=== PATIENT | female | born 1995 | race Caucasian/White ===

== ENCOUNTER 2017-02-20 17:31 | Outpatient (CLI) | payer MEDICAID ==
[2017-02-20 18:16] LABS: BILIRUBIN,URINE NEGATIVE (NEGATIVE)
[2017-02-20 18:37] LABS: BASOPHILS % (AUTO) 0.2 %; EOSINOPHILS # (AUTO) 0.1 10^3/uL (0.0-0.7); EOSINOPHILS % (AUTO) 0.9 %; HCT - HEMATOCRIT 36.9 % (37.0-47.0); HGB - HEMOGLOBIN 12.3 g/dL (12.0-16.0); LYMPHOCYTES # (AUTO) 2.9 10^3/uL (1.5-3.5); LYMPHOCYTES % (AUTO) 28.7 %; MEAN CORPUSCULAR HEMOGLOBIN 27.1 pg (27.0-31.0); MEAN CORPUSCULAR HGB CONC 33.4 g/dL (32.0-36.0); MEAN CORPUSCULAR VOLUME 81.1 fL (81.0-99.0); MONOCYTES # (AUTO) 0.8 10^3/uL (0.0-1.0); MONOCYTES % (AUTO) 7.8 %; NEUTROPHILS # (AUTO) 6.2 10^3/uL (1.5-6.6); NEUTROPHILS % (AUTO) 62.4 %; RED BLOOD COUNT 4.55 10^6/uL (4.20-5.40); RED CELL DISTRIBUTION WIDTH 13.7 % (12.0-15.0)
[2017-02-20 18:38] LABS: WBC,URINE 0-3 /HPF (0-5)
== END 2017-02-20 17:32 | disposition home or self-care (01) ==
LOC: LAB 17:31
PROVIDERS: ATTEND Registered Nurse
DX: Z34.81 Encounter for supervision of other normal pregnancy, first trimester (principal)
CPT/HCPCS: 36415; 81001; 81599; 85025; 86762; 86850; 86900; 86901; 87340; 87389

== ENCOUNTER 2017-02-21 08:00 | Outpatient (CLI) | payer MEDICAID | END 2017-02-21 08:01 | disposition home or self-care (01) | LOC: LAB.R 08:00 | PROVIDERS: ATTEND Registered Nurse | DX: Z36 Encounter for antenatal screening of mother (principal) | CPT/HCPCS: 87491; 87591 ==

== ENCOUNTER 2017-06-08 08:20 | Outpatient (CLI) | payer MEDICAID ==
[2017-06-08 09:21] VITALS: BP 112/69
== END 2017-06-08 08:55 | disposition home or self-care (01) ==
LOC: WFO 08:20 → FBP 08:22 → WFO 08:55
PROVIDERS: ATTEND Obstetrics & Gynecology
DX: O36.8120 Decreased fetal movements, second trimester, not applicable or unspecified (principal); Z3A.25 25 weeks gestation of pregnancy; Z34.82 Encounter for supervision of other normal pregnancy, second trimester
CPT/HCPCS: 36415; 82950; 86850; 99212

== ENCOUNTER 2017-07-11 15:01 | Outpatient (CLI) | payer MEDICAID ==
--- NOTE | 2017-07-12 16:04 | Ultrasound Report ---
DATE OF SERVICE: 07/11/2017 LIMITED OB ULTRASOUND: 07/11/2017 CLINICAL INDICATION: Uterine size/date discrepancy. TECHNIQUE: Real-time scanning was performed with service liaison representative static images obtained. LAST MENSTRUAL PERIOD 12/09/2016 Clinical Age 30 weeks 4 days US Age 31 weeks 4 days EFW Hadlock 1629 g EFW% Hadlock 51.8% Heart Rate 131 bpm EDC 09/15/2017 US EDC 09/08/2017 BPD Hadlock 32 weeks 6 days; Mean mm 81.6 HC Hadlock 32 weeks 3 days; Mean mm 294.0 AC Hadlock 30 weeks 2 days; Mean mm 260.7 FL Hadlock 30 weeks 4 days; Mean mm 58.5 Presentation cephalic Placental Location posterior Cervical Length --- Amniotic Fluid 15.8 cm There is a single viable intrauterine gestation, with heart rate of 131 BPM. The fetus is in cephalic presentation. The placenta is posterior, without evidence of previa. By size, the fetus measures 31 weeks 4 days (30 weeks 4 days by physician order). Estimated weight by Hadlock method is 1629 grams. No free fluid or adnexal lesion is seen. IMPRESSION: Single viable intrauterine gestation, with size in keeping with dating from the office. TD: 07/11/2017 22:02 MTDAvis
== END 2017-07-11 15:02 | disposition home or self-care (01) ==
LOC: DI 15:01
PROVIDERS: ATTEND Registered Nurse
DX: O26.843 Uterine size-date discrepancy, third trimester (principal)
CPT/HCPCS: 76815

== ENCOUNTER 2017-07-19 12:00 | Outpatient (CLI) | payer MEDICAID | END 2017-07-19 12:01 | disposition home or self-care (01) | LOC: LAB.R 12:00 | PROVIDERS: ATTEND Nurse Practitioner Obstetrics & Gynecology | DX: R82.90 Unspecified abnormal findings in urine (principal) | CPT/HCPCS: 87086 ==

== ENCOUNTER 2017-07-23 10:46 | Outpatient (CLI) | payer MEDICAID ==
[2017-07-23 11:10] VITALS: BP 105/54
[2017-07-23 11:20] LABS: BILIRUBIN,URINE NEGATIVE (NEGATIVE); CLARITY,URINE CLEAR (CLEAR); GLUCOSE, URINE (UA) NEGATIVE (NEGATIVE); KETONES,URINE (UA) NEGATIVE (NEGATIVE); LEUKOCYTE ESTERASE, URINE NEGATIVE (NEGATIVE); NITRITE,URINE NEGATIVE (NEGATIVE); OCCULT BLOOD,URINE NEGATIVE (NEGATIVE); PH,URINE 6.5 PH (5.0-7.5); PROTEIN,URINE NEGATIVE (NEGATIVE); UROBILINOGEN,URINE 0.2 (NORMAL) E.U./dL (NORMAL)
== END 2017-07-23 12:00 | disposition home or self-care (01) ==
LOC: WFO 10:46 → FBP 10:47 → WFO 12:00
PROVIDERS: ATTEND Nurse Practitioner Obstetrics & Gynecology
DX: O26.893 Other specified pregnancy related conditions, third trimester (principal); R10.2 Pelvic and perineal pain; Z3A.32 32 weeks gestation of pregnancy
CPT/HCPCS: 81001; 81003; 87086; 99214

== ENCOUNTER 2017-08-17 10:08 | Outpatient (CLI) | payer MEDICAID | END 2017-08-17 10:09 | disposition home or self-care (01) | LOC: LAB.R 10:08 | PROVIDERS: ATTEND Registered Nurse | DX: Z36.85 Encounter for antenatal screening for Streptococcus B (principal) | CPT/HCPCS: 87081 ==

== ENCOUNTER 2017-08-25 19:12 | Outpatient (CLI) | payer MEDICAID ==
[2017-08-25] MEDS ORDERED: LACTATED RINGERS 1,000 ML IV SCH (19:44)
[2017-08-25] MEDS ORDERED: LACTATED RINGERS 1,000 ML IV ONE (19:44)
[2017-08-25] MEDS ORDERED: SODIUM CHLORIDE FLUSH 0.9% 10 ML SYRINGE ONE (19:44)
[2017-08-25 20:13] VITALS: BP 112/65
[2017-08-25 21:31] LABS: RUPTURE OF MEMBRANES PLUS NEGATIVE (NEGATIVE)
== END 2017-08-25 22:00 | disposition home or self-care (01) ==
LOC: WFO 19:12 → FBP 19:13 → WFO 22:00
PROVIDERS: ATTEND Registered Nurse
DX: O47.1 False labor at or after 37 completed weeks of gestation (principal); Z3A.37 37 weeks gestation of pregnancy
CPT/HCPCS: 84112; 99213; J7120

== ENCOUNTER 2017-09-14 16:13 | Inpatient (IN) | payer MEDICAID ==
[2017-09-14] MEDS ORDERED: SODIUM CHLORIDE FLUSH 0.9% 10 ML SYRINGE IVP PRN (18:03)
[2017-09-14] MEDS ORDERED: NALBUPHINE 20 MG/ML AMP IVP PRN (18:04)
[2017-09-14] MEDS ORDERED: fentaNYL 100 MCG/2 ML VIAL IVP PRN (18:05)
--- NOTE | 2017-09-14 18:09 | HISTORY & PHYSICAL EXAMINATION ---
Admit History - Instructions Ak Chin/Slash: -Left hand click circles element as positive or present. -Right hand click slashes element as negative or not present. - Visit Reason Visit Reason: Contractions (since 1500) - : 3 Parity: 1 Premature: 0 Ectopic: 0 : 1 Care: positive: [facility] Risk/History: positive: None Complications This : positive: None Smoking Status: Never smoker - Mother's Labs Mother's Blood Type: positive: O Mother's RH: positive: Positive GBS: positive: Group B Step Negative Rubella Status: positive: Immune - Other Maternal History Other Maternal History: Flores Goldman is a 22 y/o @ 39w6d by early 1st trimester US who received care beginning @ 7 weeks for a total of 14 visits. Her care was complicated only by pelvic discomfort, which was intermittently debilitating. She presents this evening w/ 3 hours of consistent uterine contractions w/ progressive discomfort. She denies LOF/VB. +FM. Meds/Allgy - Home Medications Home Medications: Ambulatory Orders Medication Instructions Recorded Confirmed No Known Home Medications [No 01/27/16 01/27/16 Known Home Medications] - Allergies Allergies/Adverse Reactions: Allergies Allergy/AdvReac Type Severity Reaction Status Date / Time amoxicillin Allergy Hives Verified 01/27/16 16:44 buster Allergy Hives Verified 01/27/16 16:44 venom-honey bee Allergy Anaphylaxis Verified 01/27/16 16:44 [bee venom (honey bee)] Physical - Abdominal Exam Vital Signs: Temp Pulse Resp BP Pulse Ox 36.9 C 122 H 18 105/69 99 09/14/17 16:42 09/14/17 16:42 09/14/17 16:42 09/14/17 16:42 09/14/17 16:42 Contraction Frequency (min/apart): 3 Contraction Intensity: positive: Moderate Uterine Resting Tone: positive: Soft - Monitoring Heart Rate Baseline: 130 Strip Review: positive: Category I - Presentation Presentation: positive: Vertex - Vaginal Exam Membranes: positive: Membranes intact Dilation (in cm): 6 Effacement (%): 80 Station: positive: -1 Cervical Position: positive: Anterior - Speculum Exam Speculum Exam Performed: positive: No Findings: negative: Gross leak - Other Notes Labor Progress Note/Additional Text: Flores Goldman is a 22 y/o @ 39w6d by early 1st trimester US who received care beginning @ 7 weeks for a total of 14 visits. Her care was complicated only by pelvic discomfort, which was intermittently debilitating. She presents this evening w/ 3 hours of consistent uterine contractions w/ progressive discomfort. She denies LOF/VB. +FM. Her labs were consistently WNL; she screened negative for GBS @ 36 weeks' gestation PMHx: RECURRENT UTI, ANXIETY/DEPRESSION, HX SUICIDE ATTEMPT Psurghx: TONSILLECTOMY 2017 Gynhx: NO HX STI, HX VVC, NON-RECURRENT OBhx: 2016 @ 41 WEEKS 9#2OZ W/O COMPLICATION; 2013 1ST TRIMESTER TAB Sochx: HOMEMAKER, , DENIES DV, DENIES TOBACCO/ETOH/DRUGS, HX DEPRESSION/ ANXIETY, NOT MEDICATED ROS: HEENT: DENIES BERG/VISION CHANGES CARDIAC: DENIES CP/PALPITATIONS RESP: DENIES SOB/COUGH/WHEEZING/DYSPNEA GI: DENIES N/V/D : NO CHANGES IN VAGINAL D/C, NO LOF, NO VAGINAL BLEEDING, +URINARY FREQUENCY OB: +FM, +UTERINE CONTRACTIONS, NO LOF, NO VB MS: +PUBIC PAIN, + LOW BACK PAIN, FROM SKIN: NO LESION, NO PRURITUS NEURO: NO NUMBNESS/WEAKNESS/TINGLING PSYCH: +ANXIETY, NO DEPRESSION PE: HEENT: GROSSLY NORMOCEPHALIC, ATRAUMATIC CARDIAC: [id number], NO MURMUR RESP: LUNGS B/L CTA T/O GI: ABD GRAVID, NT, +FM PALPABLE, FETUS LONGITUDINAL, CEPHALIC PRESENTATION EFW8 # : NO LESIONS, NO ABNORMAL D/C OB: EFM BL 130BPM, +ACCELS, NO DECELS, MOD HANH; TOCO UCS Q 3 MIN [id number], SVE : 6/80/-1 IBOW PER RN MS: FROM, NO SWELLING/DEFORMITY SKIN: NO LESION, C/D/I, WARM, WELL-PERFUSED NEURO: NO FOCAL DEFICIT PSYCH: ANXIOUS, NO DEPRESSION, NO COGNITIVE DEFICIT Plan for Labor - Plan For Labor Plan for Labor: 1. ADMIT TO FBP 2. ANALGESIA/ANESTHESIA PRN PER PT REQUEST 3. REVIEWED PAIN MANAGEMENT TECHNIQUES, PT WOULD LIKE TO AMBULATE & UTILIZE HYDROTHERAPY 4. PT DECLINES AROM @ THIS TIME 5. INTERMITTENT AUSCULTATION UNLESS CEFM CLINICALLY INDICATED 6. REASSESS CERVICAL STATUS X4 HOURS, EARLIER PRN 7. REVIEWED PLAN OF CARE W/ PT, PARTNER, RN @ BEDSIDE; ALL IN AGREEMENT, WITHOUT CONCERNS
[2017-09-14] MEDS: SODIUM CHLORIDE FLUSH 0.9% 10 ML SYRINGE IVP SCH (18:57)
[2017-09-14] MEDS ORDERED: LACTATED RINGERS 1,000 ML IV SCH (19:00)
[2017-09-14 19:03] LABS: BASOPHILS % (AUTO) 0.8 %; EOSINOPHILS % (AUTO) 0.4 %; HGB - HEMOGLOBIN 11.8 g/dL (12.0-16.0); LYMPHOCYTES % (AUTO) 21.4 %; MEAN CORPUSCULAR HEMOGLOBIN 25.8 pg (27.0-31.0); MEAN CORPUSCULAR HGB CONC 32.3 g/dL (32.0-36.0); MEAN PLATELET VOLUME 8.5 fL (7.9-10.8); MONOCYTES % (AUTO) 9.2 %; NEUTROPHILS % (AUTO) 68.2 %; PLT - PLATELET COUNT 253 10^3/uL (130-450); RED BLOOD COUNT 4.56 10^6/uL (4.20-5.40); RED CELL DISTRIBUTION WIDTH 14.5 % (12.0-15.0); WHITE BLOOD COUNT 12.4 x10^3/uL (4.8-10.8)
[2017-09-14 19:08] LABS: ABNORMAL LYMPHS % (MANUAL) 0 %
[2017-09-14 19:22] LABS: BAND NEUTROPHILS % (MANUAL) 2 %; DIFFERENTIAL COMMENT MANUAL DIFFERENTIAL; LYMPHOCYTES # (MANUAL) 2.2 10^3/uL (1.5-3.5); LYMPHOCYTES % (MANUAL) 18 %; MONOCYTES # (MANUAL) 1.1 10^3/uL (0.0-1.0); NEUTROPHILS # (MANUAL) 9.1 10^3/uL (1.5-6.6); NEUTROPHILS % (MANUAL) 71 %; PLATELET ESTIMATE, MANUAL NORMAL (130-450,000) (NORMAL); PLATELET MORPHOLOGY NORMAL APPEARANCE (NORMAL); RBC MORPHOLOGY (MULTIPLE) 1+ POLYCHROMASIA (NORMAL)
--- NOTE | 2017-09-15 09:26 | PROVIDER PROGRESS NOTE ---
Labor Progress Note - Uterine Monitoring Uterine Monitoring Mode: positive: External toco Contraction Frequency (min/apart): erratic 4-5 Contraction Intensity: positive: Mild to moderate Uterine Resting Tone: positive: Soft - Monitoring Monitor Mode: positive: External ultrasound Heart Rate Baseline: 130 Heart Rate Variability: positive: Absent; amplitude undetectable Accelerations: positive: Present, 15x15 Decelerations: positive: None - Vaginal Exam Dilation (in cm): 7 Effacement (%): 90 Station: -1 Cervical Position: Midposition (AROM for copious CAF) - Labor Progress Note Labor Progress Note/Additional Text: S: Flores was able to sleep intermittently overnight. She is hoping to have an unmedicated delivery. She requests AROM. O: AAOx3, NAD WA EFM: 130bpm, +accels, no decels, mod variability TOCO: UCs erratic, q 3-5 SVE: 7/90/-1 BBOW AROM for copious CAF A: 22 y/o @ 40 weeks' EGA GBS negative, AROM for CAF FHTs cat I prodromal labor w/ advanced cervical dilatation Adequate pain control w/o analgesia/anesthesia P: 1. Reassess cervical status x4 hours, earlier PRN 2. Encouraged ambulation, reviewed optimal maternal positioning to facilitate descent 3. Analgesia/anesthesia PRN per pt request; pt aware of all pain management options 4. Anticipate
[2017-09-15] MEDS ORDERED: OXYTOCIN/SODIUM CHLORIDE 500 ML IV ONE (09:47)
[2017-09-15] MEDS ORDERED: fent/BUPIV 2 MCG/0.125% 250 ML EP ONE (10:24)
[2017-09-15] MEDS: LACTATED RINGERS 1,000 ML IV SCH ×2 (10:33→22:15)
[2017-09-15] MEDS ORDERED: MAGNESIUM HYDROXIDE 2,400 MG/30 ML UDC PO PRN (11:06)
[2017-09-15] MEDS ORDERED: OXYTOCIN/SODIUM CHLORIDE 250 ML IV ONE (11:06)
[2017-09-15] MEDS ORDERED: HYDROCORTISONE/PRAMOXINE 10 GM PR PRN (11:06)
[2017-09-15] MEDS ORDERED: WITCH HAZEL/GLYCERIN 1 EACH MED..PAD TOP PRN (11:06)
[2017-09-15] MEDS ORDERED: HYDROCORTISONE 1% CREAM 28 GM TUBE PR PRN (11:06)
[2017-09-15] MEDS ORDERED: ONDANSETRON 4 MG/2 ML VIAL IVP PRN (11:06)
--- NOTE | 2017-09-15 11:13 | DELIVERY NOTE ---
Delivery Note - Labor Labor: positive: Augmented by ARM - Infant Delivery Method Delivery Method: positive: Spontaneous vaginal delivery - Presentation Presentation: positive: Vertex, LENORA - left occiput anterior - Nuchal Cord Nuchal Cord: positive: Present (loose x1, reduced prior to delivery of shoulders /body) - Anesthetic Anesthetic Type: - Amniotic Fluid Description Amniotic Fluid Description: positive: Clear (copious) - Episiotomy Type Episiotomy Type: positive: None - Laceration Laceration: positive: 1st degree - Suture Suture Type: positive: Vicryl Suture Size: positive: 2-0 (1 stitch) - Atwood: positive: Placed in direct skin contact with mother, Suctioned, Bulb syringe, Stimulated, Warmed, Warmer used sex: positive: Male - Cord Cord: positive: 3 vessels - Placenta Placenta: positive: Intact, Spontaneous - Estimated Blood Loss Estimated Blood Loss (in cc): 100 - Post Delivery Events Post Delivery Events: positive: No post delivery events - Delivery Comments (Free Text/Narrative) Delivery Comments (Free Text/Narrative): Flores Goldman is a 22 y/o [id number] who received care x14 visits beginning in the first trimester. She presented @ 39w6d in latent labor w/ advanced dilatation. She underwent AROM for copious CAF & entered active labor. She received epidural bolus only & experienced spontaneous urge to push @ 1045, for a total first stage duration of 2 hours, 45 minutes. FHTs monitored electronically & consistently cat I. Pushed w/ spontaneous urge to viable male in LENORA position over 1st degree perineal laceration @ 1053, for a total 2nd stage duration of 8 minutes. Loose nuchal x1 reduced easily prior to delivery of shoulders/body. vigorous w/ spontaneous, lusty cry. Placed to maternal abdomen for drying/stim. Delayed cord clamping until cessation of pulsation, then cord clamped x2 by CNM, cut by FOb. 3VC noted, cord blood obtained. AMTSL w/ Pitocin in IV fluids. Vagina & perineum inspected & first degree perineal laceration noted, repaired w/ 1 figure of 8 stitch of 2-0 vicryl under epidural anesthesia. Hemostatic & well-approximated. EBL 100mL. FF @ U. Mother & stable, planning to breastfeed. Apgars 8/9. Weight pending.
[2017-09-15] MEDS: ACETAMINOPHEN 500 MG TABLET PO SCH ×2 (13:19→21:00)
[2017-09-15] MEDS: CELECOXIB 100 MG CAPSULE PO SCH (13:20)
[2017-09-15] MEDS: DOCUSATE SODIUM 100 MG CAPSULE PO SCH (13:21)
[2017-09-15] MEDS: SODIUM CHLORIDE FLUSH 0.9% 10 ML SYRINGE IVP SCH ×2 (13:22→18:56)
[2017-09-16] MEDS: CELECOXIB 100 MG CAPSULE PO SCH ×2 (00:20→11:30)
[2017-09-16] MEDS: DOCUSATE SODIUM 100 MG CAPSULE PO SCH ×2 (00:20→11:30)
[2017-09-16] MEDS: ACETAMINOPHEN 500 MG TABLET PO SCH (04:46)
[2017-09-16 14:00] VITALS: BP 92/51
--- NOTE | 2017-09-16 15:07 | Discharge Plan ---
Discharge Plan Disposition: 01 Home, Self Care Condition: Good Diet: Regular Activity Restrictions: pelvic rest x6 weeks Shower Restrictions: No Driving Restrictions: No Weight Bearing: Full Weight Instruction Topics: Breastfeed How To, Vaginal After, Exercises Kegel Additional Instructions or Follow Up instructions: x3 weeks w/ Rosanna Wall CNM No Smoking: If you smoke, Please STOP! Call for help. Follow-up with: Rosanna Wall CNM, EMPERATRIZ [Provider Admit Priv/Credential] -
--- NOTE | 2017-09-16 15:10 | DISCHARGE SUMMARY ---
"Discharge Summary Admit Date: 09/14/17 Discharge Date: 09/16/17 Discharging Provider: SUSU Code Status: Attempt Resuscitation Condition at Discharge: Good Discharge Disposition: 01 Home, Self Care Discharge Facility Name: [facility] - DIAGNOSES Admission Diagnoses: 39 WEEKS' GESTATION Discharge Diagnoses with Status of Each Condition: FIRST DEGREE PERINEAL LACERATION W/ REPAIR - HPI History of Present Illness: ELOISA PERSAUD IS A 22 Y/O [id number] WHO WAS ADMITTED W/ UTERINE CONTRACTIONS & ADVANCED CERVICAL DILATATION. SHE HAD A SLOW LABOR PROCESS W/ PROTRACTED 1ST STAGE & SLOW CERVICAL CHANGE. SHE UNDERWENT AROM @ 7CM DILATATION & HAD EPIDURAL PLACEMENT FOR ANESTHESIA SHORTLY THEREAFTER. SHE THEN PROGRESSED RAPIDLY TO COMPLETE DILATATION & DELIVERED VAGINALLY OVER A 1ST DEGREE PERINEAL LACERATION W/O COMPLICATION. - CONSULTS | PROCEDURES Consultations: ANESTHESIA Procedures: AROM EPIDURAL PLACEMENT REPAIR OF 1ST DEGREE PERINEAL LACERATION - HOSPITAL COURSE Hospital Course: , ELOISA IS AMBULATING & VOIDING W/O DIFFICULTY. SHE IS PASSING FLATUS & TOLERATING PO INTAKE. HER PAIN IS WELL-CONTROLLED W/ NON-OPIOID ANALGESIA. SHE IS WELL W/ EXCELLENT LATCH & HAS A HX OF A PREVIOUSLY SUCCESSFUL EXPERIENCE. SHE REPORTS MINIMAL LOCHIA RUBRA. SHE DENIES HX OF PP DEPRESSION BUT SHE DOES HAVE A HX OF GENERAL DEPRESSION & ANXIETY, WHICH HAVE MOSTLY BEEN CONTROLLED DURING HER . SHE IS NOT PLANNING TO RETURN TO WORK. HER PARTNER WILL HAVE 2 WEEKS OFF TO ASSIST HER AT HOME & SHE REPORTS ADDITIONAL EXCELLENT SOCIAL SUPPORT. SHE IS ABLE TO FULLY ARTICULATE PP WARNING S/SX, INCLUDING PP DEPRESSION S/SX, AND PP AFTERCARE INSTRUCTIONS. SHE IS PLANNING PARAGARD PLACEMENT FOR PP CONTRACEPTION & INTENDS TO F/U FOR PP VISIT @ 3WEEKS' PP & ANNUAL W/ IUD PLACEMENT @ 8 WEEKS' PP. SHE HAS EMERGENCY CONTACT INFORMATION & IS READY TO LEAVE THE HOSPITAL. - ALLERGIES Allergies/Adverse Reactions: Allergies Allergy/AdvReac Type Severity Reaction Status Date / Time amoxicillin Allergy Hives Verified 01/27/16 16:44 buster Allergy Hives Verified 01/27/16 16:44 venom-honey bee Allergy Anaphylaxis Verified 01/27/16 16:44 [bee venom (honey bee)] - MEDICATIONS Home Medications: Ambulatory Orders Medication Instructions Recorded Confirmed No Known Home Medications [No 01/27/16 09/15/17 Known Home Medications] - PHYSICAL EXAM AT DISCHARGE General Appearance: positive: No acute distress, Alert Eyes Bilateral: positive: Normal inspection Respiratory: positive: Chest non-tender, No respiratory distress, Breath sounds nml Cardiovascular: positive: Regular rate & rhythm, No murmur Abdomen: positive: Non-tender, No distention, Other (FFU-2) Skin: positive: Color nml, No rash, Warm, Dry Extremities: positive: Non-tender, Full ROM, Nml appearance, No pedal edema. negative: Calf tenderness Neurologic/Psychiatric: positive: Oriented x3, CN's nml (2-12), Motor nml, Sensation nml, Mood/affect nml Physical Exam Other/Comments: BREASTS B/L S, NT; NIPPLES B/L INTACT & EVERTED, COLOSTRUM READILY EXPRESSIBLE PERINEUM W/ SUTURES INTACT, MINIMAL EDEMA, NO ERYTHEMA/ECCHYMOSIS; MINIMAL LOCHIA RUBRA - LABS Result Diagrams: 09/14/17 18:50 - FOLLOW UP Follow Up: X3 WEEKS W/ REX CRISTOBAL CNM, EARLIER PRN - TIME SPENT Time Spent in Discharge (Minutes): 30"
--- NOTE | 2017-09-16 18:00 | Labor Flowsheet ---
Labor Flowsheet Datetime Report Generated by CPN: 09/16/2017 18:00 Datetime: 09/16/2017 13:51 VITAL SIGNS NBP Sys/[place]/Mean (mmHg): 92 : 51 : 61 Pulse: 80 LaborFlag: Labor Datetime: 09/15/2017 19:50 SpO2 (%): 98 Datetime: 09/15/2017 12:36 Patient Care Comments: 250cc in bedpan, Pt VO Datetime: 09/15/2017 12:33 I/O Interventions: Bedpan Given Datetime: 09/15/2017 11:50 Membranes Ruptured Date/Time: 09/15/2017 08:52 Datetime: 09/15/2017 10:56 Comments: PlACENTA Datetime: 09/15/2017 10:40 Epidural Procedure: Loading Dose Datetime: 09/15/2017 10:38 Anesthesia Comments: test dose negative Datetime: 09/15/2017 10:31 PROCEDURE TIME OUT Procedure Verify: Correct Patient Identity; Correct Side and Site are Marked; Accurate Procedure Co nsent Form; Agreement on Procedure to be Done; Correct Patient Position; Addressed Need to Administer Antibiotics or Fluids for Irrigation; Safety Precautions Based on Patient History or Medication Use ANESTHESIA Anesthesia Plans: Epidural Epidural Positioning: Sitting Datetime: 09/15/2017 10:21 Monitor Interventions for UA: Chalmers Adjusted Datetime: 09/15/2017 10:16 Communication Comments: Meng Shabazz in room Datetime: 09/15/2017 10:08 VAGINAL EXAM Dilatation (cm): 7.0 Effacement (%): 90 Station: 0 Exam by: RN Means Datetime: 09/15/2017 10:02 COMMUNICATION Communication: Call/Page Placed to Provider Datetime: 09/15/2017 09:50 Stage of : Labor UTERINE ACTIVITY Monitor Mode: External Quality: Strong Duration (sec): 60 Pattern: Normal: <= 5 Contractions in 10 Minutes Resting Tone (Palpate): Relaxed Contraction Comments: Pt requesting epidural ASSESSMENT A Monitor Mode: Doppler FHR Baseline Rate : 130 (Annotations: FHT 130's before ctx, during ctx and after ctx) Datetime: 09/15/2017 09:45 MEDICATIONS Medication Comments: LR bolus started @999/hr Datetime: 09/15/2017 09:40 Pain Assessment Comments: pt requesting epidural Datetime: 09/15/2017 09:16 Frequency (min): 4-6 Variability: Moderate 6-25 bpm Accelerations: 15X15 Decelerations: None Category: Category I PATIENT CARE Oxygen Method: Room Air Datetime: 09/15/2017 08:53 Vaginal Bleeding: None Cervix, Consistency: Soft Cervix, Position: Anterior Datetime: 09/15/2017 08:51 Membrane Status: Ruptured Membranes Rupture Method: Artificial Amniotic Fluid Color: Clear Amniotic Fluid Amount: Moderate Amniotic Fluid Odor: Normal Datetime: 09/15/2017 08:41 Respirations: 18 Temperature (C): 36.5 MATERNAL ASSESSMENT Level of Consciousness: Fully Conscious Headache: Denies Nausea/Vomiting: Denies RUQ Epigastric Pain: Denies Datetime: 09/15/2017 06:35 Patient Position/Activity: Right Lateral Datetime: 09/15/2017 05:37 Monitor Interventions for FHR: Ultrasound Adjusted Datetime: 09/14/2017 23:27 Breath Sounds, Left: Clear and Equal Breath Sounds, Right: Clear and Equal Datetime: 09/14/2017 23:26 PAIN Pain Scale: 0 Datetime: 09/14/2017 19:22 Temperature Route: Oral
== END 2017-09-16 17:58 | disposition home or self-care (01) | DRG 775 ==
LOC: WFO 16:13 → FBP 16:14 → WFO 18:02 → FBP 18:03
PROVIDERS: ADMIT Registered Nurse; ATTEND Registered Nurse
PROC: 10E0XZZ Delivery of Products of Conception, External Approach (ICD-10-PCS; principal; 2017-09-15)
PROC: 10907ZC Drainage of Amniotic Fluid, Therapeutic from Products of Conception, Via Natural or Artificial Opening (ICD-10-PCS; 2017-09-15)
PROC: 0HQ9XZZ Repair Perineum Skin, External Approach (ICD-10-PCS; 2017-09-15)
DX: O62.2 Other uterine inertia (principal); O70.0 First degree perineal laceration during delivery; O69.81X0 Labor and delivery complicated by cord around neck, without compression, not applicable or unspecified; Z3A.39 39 weeks gestation of pregnancy; Z37.0 Single live birth; Z86.59 Personal history of other mental and behavioral disorders; Z91.5 Personal history of self-harm; Z87.440 Personal history of urinary (tract) infections
CPT/HCPCS: 85025; 99213

== ENCOUNTER 2018-07-18 11:36 | Outpatient (CLI) | payer MEDICAID | END 2018-07-18 23:59 | disposition home or self-care (01) | LOC: LAB.R 11:36 | PROVIDERS: ATTEND Registered Nurse | DX: N89.8 Other specified noninflammatory disorders of vagina (principal) | CPT/HCPCS: 87491; 87591 ==

== ENCOUNTER 2019-06-20 08:00 | Outpatient (CLI) | payer MEDICAID ==
[2019-06-20 18:24] LABS: MUDS CUTOFF CONCENTRATIONS CUTOFF CONC BELOW:
[2019-06-20 18:59] LABS: BILIRUBIN,URINE NEGATIVE (NEGATIVE); GLUCOSE, URINE (UA) NEGATIVE (NEGATIVE); KETONES,URINE (UA) NEGATIVE (NEGATIVE); LEUKOCYTE ESTERASE, URINE SMALL (NEGATIVE); NITRITE,URINE NEGATIVE (NEGATIVE); OCCULT BLOOD,URINE NEGATIVE (NEGATIVE); PROTEIN,URINE NEGATIVE (NEGATIVE); UROBILINOGEN,URINE 0.2 (NORMAL) E.U./dL (NORMAL)
[2019-06-20 19:04] LABS: CLARITY,URINE CLEAR (CLEAR)
[2019-06-20 19:10] LABS: BACTERIA,URINE Rare /HPF (None Seen); RBC,URINE None Seen /HPF (0-5); SQUAMOUS EPITHELIAL CELL,UR MANY Squamous (<= Few)
[2019-06-20 19:19] LABS: AMPHETAMINE SCREEN,URINE NEGATIVE (NEGATIVE); BENZODIAZEPINES SCREEN, URINE NEGATIVE (NEGATIVE); COCAINE SCREEN URINE NEGATIVE (NEGATIVE); METHADONE SCREEN, URINE NEGATIVE (NEGATIVE); METHAMPHETAMINES SCREEN, URINE NEGATIVE (NEGATIVE); OPIATE SCREEN, URINE NEGATIVE (NEGATIVE); OXYCODONE SCREEN, URINE NEGATIVE (NEGATIVE); PROPOXYPHENE SCREEN, URINE NEGATIVE (NEGATIVE); TRICYCLIC ANTIDEPRESSANT,URINE NEGATIVE (NEGATIVE)
[2019-06-20 21:37] LABS: TRICHOMONAS VAGINALIS DNA NEGATIVE (NEGATIVE)
== END 2019-06-20 23:59 | disposition home or self-care (01) ==
LOC: LAB.R 08:00
PROVIDERS: ATTEND Obstetrics & Gynecology
DX: Z32.01 Encounter for pregnancy test, result positive (principal)
CPT/HCPCS: 80306; 81001; 87086; 87491; 87591; 87661

== ENCOUNTER 2019-07-01 11:40 | Outpatient (CLI) | payer MEDICAID ==
--- NOTE | 2019-07-02 12:52 | Ultrasound Report ---
Reason: CARE, SECOND TRIMESTER Procedure Date: 07/01/2019 Accession Number: [id number] / [id number] Procedure: US - OB Detailed Eval CPT Code: Final Report FULL RESULT: EXAM: COMPLETE OBSTETRICAL ULTRASOUND EXAM DATE: 07/01/2019 01:02 PM. CLINICAL HISTORY: anatomic survey. COMPARISON: None. TECHNIQUE: Real-time sonographic evaluation of the fetus performed by the farmworker rice. Multiple branch sales and service representative static images were saved for review. Additional transvaginal imaging to more accurately evaluate cervical length/placental position/etc. DATING: Established EGA 26 weeks 2 days with SELVIN 10/05/2019 based on LMP EGA 25 weeks 2 days with SELVIN 10/12/2019 based on the current ultrasound. GENERAL EVALUATION Garner . Cardiac activity: 133 bpm. movement: Visualized. Presentation: Cephalic. Placenta: Anterior position. No evidence for previa. Umbilical cord: 3 vessel cord. Central placental cord origin. Amniotic fluid: 12 MVP 3.7 cm. BIOMETRY Bi-Parietal Diameter (BPD): 6.23 cm, 25 weeks 2 days Head Circumference (HC): 23.36 cm, 25 weeks 3 days Abdominal Circumference (AC): 21.19 cm, 25 weeks 5 days Femur Length (FL): 4.45 cm, 24 weeks 5 days Estimated Weight: 791 g, 9.2 percentile for 26 weeks 2 days. ANATOMY The intracranial structures, profile, face/nose/lips, spine, 4 chamber heart and outflow tracts, stomach, abdominal wall and cord insertion, diaphragm, kidneys, bladder, and extremities were visualized and demonstrate no abnormality. Hands are identified but detail not well seen MATERNAL STRUCTURES Uterus: Unremarkable. Cervix: Long and closed. Transabdominal length 3.9 cm. Right ovary/adnexa: Unremarkable. Left ovary/adnexa: Unremarkable. Free fluid: None. IMPRESSION: 1. Garner live intrauterine with gestational age 26 weeks 2 days based on LMP. 2. Estimated weight is 9.2 percentile for assigned dating. 3. hands are identified but detail not well seen. Otherwise unremarkable anatomic survey. No anatomic abnormalities are detected at this time. RADIA
== END 2019-07-01 11:41 | disposition home or self-care (01) ==
LOC: DI 11:40
PROVIDERS: ATTEND Obstetrics & Gynecology
DX: Z34.82 Encounter for supervision of other normal pregnancy, second trimester (principal)
CPT/HCPCS: 36415; 76811; 81599; 85025; 86762; 86803; 86850; 86900; 86901; 87340; 87389

== ENCOUNTER 2019-07-01 13:10 | Outpatient (CLI) | payer MEDICAID ==
[2019-07-01 13:50] LABS: BASOPHILS % (AUTO) 0.2 %; EOSINOPHILS # (AUTO) 0.1 10^3/uL (0.0-0.7); HGB - HEMOGLOBIN 11.7 g/dL (12.0-16.0); LYMPHOCYTES % (AUTO) 23.3 %; MEAN CORPUSCULAR HEMOGLOBIN 27.7 pg (27.0-31.0); MEAN CORPUSCULAR HGB CONC 32.6 g/dL (32.0-36.0); MEAN CORPUSCULAR VOLUME 84.9 fL (81.0-99.0); MEAN PLATELET VOLUME 10.4 fL (7.9-10.8); MONOCYTES # (AUTO) 0.6 10^3/uL (0.0-1.0); NEUTROPHILS # (AUTO) 5.9 10^3/uL (1.5-6.6); NEUTROPHILS % (AUTO) 67.2 %; PLT - PLATELET COUNT 226 10^3/uL (130-450); RED BLOOD COUNT 4.23 10^6/uL (4.20-5.40); RED CELL DISTRIBUTION WIDTH 12.8 % (12.0-15.0); WHITE BLOOD COUNT 8.7 x10^3/uL (4.8-10.8)
[2019-07-02 12:15] LABS: HEPATITIS B SURFACE ANTIGEN NON-REACTIVE (NON-REACTIVE); HEPATITIS C ANTIBODY NON-REACTIVE (NON-REACTIVE)
[2019-07-02 12:29] LABS: HIV AG/AB 4TH GEN NON-REACTIVE (NON-REACTIVE)
== END 2019-07-01 13:11 | disposition home or self-care (01) ==
LOC: LAB 13:10
PROVIDERS: ATTEND Obstetrics & Gynecology
DX: Z32.01 Encounter for pregnancy test, result positive (principal)
CPT/HCPCS: 36415; 81599; 85025; 86762; 86803; 86850; 86900; 86901; 87340; 87389

== ENCOUNTER 2019-07-19 17:22 | Outpatient (CLI) | payer MEDICAID ==
[2019-07-19 17:33] VITALS: BP 121/73
--- NOTE | 2019-07-24 10:12 | PROCEDURE REPORT ---
- HPI Current EDU 10/07/19 Gestation 28 Weeks and 4 Days 4 Para 2 Vital Signs Temperature 36.8 C 07/19/19 17:32 Heart Rate 98 07/19/19 17:32 Respiratory Rate 16 07/19/19 17:32 Blood Pressure 121/73 07/19/19 17:32 Temperature 36.8 C 07/19/19 17:32 Heart Rate 98 07/19/19 17:32 Respiratory Rate 16 07/19/19 17:32 Blood Pressure 121/73 07/19/19 17:32 O2 Saturation - Results and Plan Findings/Impression: reactive NST baseline 135 with accelerations no contractions Plan: Pt reassured.followup with provider
--- NOTE | 2019-08-20 19:41 | PROVIDER PROGRESS NOTE ---
- HPI Chief Complaint: Decreased movement Current : Current EDU 10/07/19 Gestation 28 Weeks and 4 Days 4 Para 2 Vital Signs Temperature 36.8 C 07/19/19 17:32 Heart Rate 98 07/19/19 17:32 Respiratory Rate 16 07/19/19 17:32 Blood Pressure 121/73 07/19/19 17:32 Temperature 36.8 C 07/19/19 17:32 Heart Rate 98 07/19/19 17:32 Respiratory Rate 16 07/19/19 17:32 Blood Pressure 121/73 07/19/19 17:32 O2 Saturation - Procedures OB Procedure Performed: NST (Patient reactive NST.) Diagnosis/Indication for NST: Decreased movement (Discussed the issues of decreased motion.) NST Procedure: Reactive NST with accelerations. Service Date of procedure: 07/19/19 Procedure Details: Patient noted motion. Her nonstress test was reactive we reviewed the issues of decreased motion and monitoring it after eating or lying down.
== END 2019-07-19 18:05 | disposition home or self-care (01) ==
LOC: WFO 17:22 → FBP 17:26 → WFO 18:05
PROVIDERS: ATTEND Obstetrics & Gynecology
DX: O36.8130 Decreased fetal movements, third trimester, not applicable or unspecified (principal); Z3A.28 28 weeks gestation of pregnancy
CPT/HCPCS: 99212; 99213

== ENCOUNTER 2019-07-29 11:06 | Outpatient (CLI) | payer MEDICAID ==
--- NOTE | 2019-07-30 16:11 | Ultrasound Report ---
Reason: SCREENING FOR GROWTH RETARDATION Procedure Date: 07/29/2019 Accession Number: [id number] / [id number] Procedure: US - OB F/U or Repeat CPT Code: Final Report FULL RESULT: EXAM: FOLLOW-UP OBSTETRICAL ULTRASOUND EXAM DATE: 07/29/2019 11:56 AM. CLINICAL HISTORY: SCREENING FOR GROWTH RETARDATION. COMPARISON: OB DETAILED EVAL 07/01/2019 11:49 AM. TECHNIQUE: Real-time sonographic evaluation of the fetus performed by the tree feller operator. Multiple inside sales account representative static images were saved for review. DATING: EGA 29 weeks/ 5 days with SELVIN 10/07/19 based on the current ultrasound. GENERAL EVALUATION Garner . Cardiac activity: 136 bpm. movement: Visualized. Presentation: Cephalic. Placenta: Anterior position. Amniotic fluid: Normal. ADEEL 15.8 cm. BIOMETRY Bi-Parietal Diameter (BPD): 7.45 cm, 29 weeks/ 6 days Head Circumference (HC): 27.3 cm, 29 weeks/ 6 days Abdominal Circumference (AC): 26.52 cm, 30 weeks/ 4 days Femur Length (FL): 5.39 cm, 28 weeks/ 4 days Estimated Weight: 1464 g, 31.5 percentile for 29 weeks/ 2 days. IMPRESSION: 1. Garner live intrauterine with gestational age 29 weeks/5 days based on current ultrasound. 2. Estimated weight is within expected limits for assigned dating. ELSAA
== END 2019-07-29 11:07 | disposition home or self-care (01) ==
LOC: DI 11:06
PROVIDERS: ATTEND Obstetrics & Gynecology
DX: Z36.4 Encounter for antenatal screening for fetal growth retardation (principal)
CPT/HCPCS: 76816

== ENCOUNTER 2019-08-13 11:30 | Outpatient (CLI) | payer MEDICAID | END 2019-08-13 11:31 | disposition home or self-care (01) | LOC: LAB 11:30 | PROVIDERS: ATTEND Obstetrics & Gynecology | DX: Z34.90 Encounter for supervision of normal pregnancy, unspecified, unspecified trimester (principal) | CPT/HCPCS: 36415; 82950 ==

== ENCOUNTER 2019-08-16 12:28 | Emergency (ER) | payer MEDICAID ==
--- NOTE | 2019-08-16 15:58 | ED Physician Documentation ---
History of Present Illness - Stated complaint Stated Complaint: FLU LIKE SX/BACK PX - Chief complaint Chief Complaint: General - History obtained from History obtained from: Patient - History of Present Illness Timing: Last night Pain level max: 7 Pain level now: 3 Quality: dull Radiates to: right flank Improved by: nothing Worsened by: nothing - Additonal information Additional information: 24 year old female AT 32 gestational weeks presents to the emergency department because of nasal congestion, subjective fever and chills since last night. Patient reported of mid back dull pain radiating to the right flank. She denies vaginal bleeding, discharge, dysuria, urinary frequency or urgency or other associated symptoms. She denies radiating pain to the lower extremities. She denies trauma, urinary or fecal incontinence. She denies any previous problems with previous pregnancies. Dr. Garrido is patient's GRAIN OPERATOR Review of Systems Constitutional: reports: Fever, Chills. denies: Sweats Eyes: denies: Loss of vision, Decreased vision, Photophobia, Discharge Ears: denies: Loss of hearing, Ear pain, Drainage/discharge Nose: reports: Rhinorrhea / runny nose Throat: denies: Dental pain / toothache, Sore throat Cardiac: denies: Chest pain / pressure, Palpitations, Pedal edema, Calf pain Respiratory: reports: Cough. denies: Dyspnea, Wheezing GI: denies: Abdominal Pain, Abdominal Swelling, Nausea, Vomiting : denies: Dysuria Musculoskeletal: denies: Neck pain, Back pain Neurologic: denies: Generalized weakness PD PAST MEDICAL HISTORY - Past Medical History Past Medical History: No Cardiovascular: None Respiratory: Asthma Neuro: None Endocrine/Autoimmune: None GI: None : None Psych: None Musculoskeletal: None - Past Surgical History Past Surgical History: No - Present Medications Home Medications: Ambulatory Orders Medication Instructions Recorded Confirmed No Known Home Medications 01/27/16 09/15/17 - Allergies Allergies/Adverse Reactions: Allergies Allergy/AdvReac Type Severity Reaction Status Date / Time amoxicillin Allergy Hives Verified 08/16/19 12:30 buster Allergy Hives Verified 08/16/19 12:30 venom-honey bee Allergy Anaphylaxis Verified 08/16/19 12:30 [bee venom (honey bee)] - Living Situation Living Situation: reports: With spouse/s.o. - Social History Does the pt smoke?: No Smoking Status: Never smoker Does the pt drink ETOH?: No Does the pt have substance abuse?: No - Immunizations Immunizations are current?: Yes PD ED PE NORMAL - Vitals Vital signs reviewed: Yes (tachycardiac, regular) - General General: Alert and oriented X 3 - HEENT HEENT: Atraumatic - Neck Neck: Supple, no meningeal sign, No bony TTP - Cardiac Cardiac: No murmur, Other (tachycardiac) - Respiratory Respiratory: No respiratory distress, Clear bilaterally - Abdomen Abdomen: Normal bowel sounds, Other ( heart tone is 135 by bedside ultrasound) - Back Back: No CVA TTP, Other (Mid lower lumbar discomfort. no crepitus or step off. No CVA tenderness to palpation.) - Derm Derm: Normal color, Warm and dry - Extremities Extremities: No deformity, No tenderness to palpate, Normal ROM s pain - Neuro Neuro: Alert and oriented X 3, No motor deficit, No sensory deficit, Normal speech Eye Opening: Spontaneous Motor: Obeys Commands Verbal: Oriented GCS Score: 15 - Psych Psych: Normal mood Results - Vitals Vitals: Vital Signs - 24 hr 08/16/19 08/16/19 12:30 16:40 Temperature 36.8 C Heart Rate 130 H 120 H Respiratory 14 18 Rate Blood Pressure 116/68 107/68 O2 Saturation 98 98 Oxygen O2 Source Room air - Labs Labs: Laboratory Tests 08/16/19 08/16/19 12:37 16:11 Urine Color YELLOW Urine Clarity CLEAR Urine pH 6.0 Ur Specific [place] >=1.030 H Urine Protein NEGATIVE Urine Glucose (UA) NEGATIVE Urine Ketones 40 H Urine Occult Blood NEGATIVE Urine Nitrite NEGATIVE Urine Bilirubin NEGATIVE Urine Urobilinogen 0.2 (NORMAL) Ur Leukocyte Esterase NEGATIVE Ur Microscopic Review NOT INDICATED Urine Culture Comments NOT INDICATED Influenza A (Rapid) Negative Influenza B (Rapid) Negative PD MEDICAL DECISION MAKING - ED course Complexity details: reviewed results, considered differential, d/w patient ED course: 24-year-old, G3, P2 At 32 gestational weeks, who presented to the emergency department for evaluation because of nasal congestion, who presented to the emergency department for evaluation because of nasal congestion, Since last night. Patient remained hemodynamically stable. Patient was noted to be tachycardic but denies any chest pain, shortness of breath. Her initial heart r ate was 130 on recheck was 120 without any discomfort. Patient also reports of mid low back pain radiating to the right flank without radiation down to her lower extremities. Bedside ultrasound showed an IUP with a heart rate of 135. Urinalysis was not consistent with a urinary tract infection. The patient was afebrile. Influenza was negative. I recommended using Tylenol or heating pad as needed for symptomatic control.Outpatient follow-up with her marketing account executive in 3 to 5 days was recommended. Strict return instructions were given. Patient expressed verbal understanding. She was discharged in stable condition. Departure - Departure Disposition: 01 Home, Self Care Clinical Impression: Third trimester at less than 36 weeks Upper respiratory infection Qualifiers: URI type: unspecified viral URI Qualified Code(s): J06.9 - Acute upper respiratory infection, unspecified Low back pain Qualifiers: Chronicity: unspecified Back pain laterality: midline Sciatica presence: without sciatica Qualified Code(s): M54.5 - Low back pain Condition: Stable Instructions: ED Spasm Back No Trauma, ED Upper Resp Infec No Abx Tx Follow-Up: Steven Garrido MD [Primary Care Provider] - Within 3 Days Comments: PLEASE RETURN TO THE EMERGENCY DEPARTMENT IF FEVER OF 100.4 OR GREATER DEVELOPS, VAGINAL BLEEDING, DISCHARGE OR ANY NEW OR CONCERNING SYMPTOMS. Discharge Date/Time: 08/16/19 16:42
[2019-08-16 16:18] LABS: BILIRUBIN,URINE NEGATIVE (NEGATIVE); GLUCOSE, URINE (UA) NEGATIVE (NEGATIVE); KETONES,URINE (UA) 40 mg/dL (NEGATIVE); LEUKOCYTE ESTERASE, URINE NEGATIVE (NEGATIVE); NITRITE,URINE NEGATIVE (NEGATIVE); OCCULT BLOOD,URINE NEGATIVE (NEGATIVE); PROTEIN,URINE NEGATIVE (NEGATIVE); UROBILINOGEN,URINE 0.2 (NORMAL) E.U./dL (NORMAL)
[2019-08-16 16:22] LABS: CLARITY,URINE CLEAR (CLEAR)
[2019-08-16 16:41] VITALS: BP 107/68
== END 2019-08-16 16:42 | disposition home or self-care (01) ==
LOC: ED 12:28
DX: O99.89 Other specified diseases and conditions complicating pregnancy, childbirth and the puerperium (principal); J06.9 Acute upper respiratory infection, unspecified; M54.5 Low back pain; Z3A.32 32 weeks gestation of pregnancy
CPT/HCPCS: 81001; 81003; 87086; 87275; 87276; 99283; 99284

== ENCOUNTER 2019-09-10 08:00 | Outpatient (CLI) | payer MEDICAID ==
[2019-09-10 21:25] LABS: TRICHOMONAS VAGINALIS DNA NEGATIVE (NEGATIVE)
== END 2019-09-10 23:59 | disposition home or self-care (01) ==
LOC: LAB.R 08:00
PROVIDERS: ATTEND Obstetrics & Gynecology
DX: Z34.80 Encounter for supervision of other normal pregnancy, unspecified trimester (principal)
CPT/HCPCS: 87491; 87591; 87661; 87797

== ENCOUNTER 2019-09-10 23:04 | Outpatient (CLI) | payer MEDICAID ==
--- NOTE | 2019-09-11 00:18 | HISTORY & PHYSICAL EXAMINATION ---
Admit History - Visit Reason Visit Reason: Bloody show, Bleeding - mild (24yo at 36 2/7 weeks by LMP presents with c/o vaginal spotting following pelvic exam at the time of scheduled visit 3/17 AM. No active bleeding. Mild cramping noted. Denies contractions. Reports normal activity. No n/v/f/c or dysuria.) - : 4 Parity: 2 Premature: 0 Ectopic: 0 : 1 Care: positive: [facility] Risk/History: positive: None, Other (Bipolar d/o) Complications This : positive: <than 3 visits (4 visits total, first at 26 weeks; moved from [place] but had no care there) Smoking Status: Never smoker - Mother's Labs Mother's Blood Type: positive: O Mother's RH: positive: Positive Rubella Status: positive: Immune (HIV/RPR/HepB NR GC/chlam neg Fluvax 03/31/2016 Tdap 07/30/2019) Meds/Allgy - Home Medications Home Medications: Ambulatory Orders Medication Instructions Recorded Confirmed Pnv No.95/Ferrous Fum/Folic AC 1 tab PO DAILY 09/11/19 09/11/19 [ Caplet] - Allergies Allergies/Adverse Reactions: Allergies Allergy/AdvReac Type Severity Reaction Status Date / Time amoxicillin Allergy Hives Verified 08/16/19 12:30 buster Allergy Hives Verified 08/16/19 12:30 penicillin V Allergy Hives Verified 09/11/19 00:24 venom-honey bee Allergy Anaphylaxis Verified 08/16/19 12:30 [bee venom (honey bee)] Review of Systems - All Other Systems All Other Systems: reports: Other (As noted above) Physical - Abdominal Exam Vital Signs: BP 100/60 P 102 T 36.2 Contraction Frequency (min/apart): One mild contraction during her monitoring Uterine Resting Tone: positive: Soft - Monitoring Strip Review: positive: Category I - Presentation Presentation: positive: Vertex (By exam) - Vaginal Exam Membranes: positive: Membranes intact Dilation (in cm): 1-2 Effacement (%): 50% Station: positive: -3 Cervical Position: positive: Midposition (Exam unchanged from that reported in clinic Sterile spec exam: No active bleeding, no blood in vagina. No fluid. Scant normal DC) Assessment/Plan - Assessment/Plan Assessment: 24yo at 36 2/7 by LMP with spotting and cramping following exam in clinic, now resolved. Normal exam, category 1 tracing. DC home. F/U as scheduled in one week.
== END 2019-09-11 00:40 | disposition home or self-care (01) ==
LOC: WFO 23:04 → FBP 23:09 → WFO 09-11 00:40
PROVIDERS: ATTEND Obstetrics & Gynecology
DX: O46.93 Antepartum hemorrhage, unspecified, third trimester (principal); Z3A.36 36 weeks gestation of pregnancy; O99.89 Other specified diseases and conditions complicating pregnancy, childbirth and the puerperium; R10.9 Unspecified abdominal pain
CPT/HCPCS: 59025; 87491; 87591; 87661; 87797; 99213

== ENCOUNTER 2019-09-14 12:42 | Inpatient (IN) | payer MEDICAID ==
--- NOTE | 2019-09-14 12:57 | HISTORY & PHYSICAL EXAMINATION ---
Admit History - Visit Reason Visit Reason: Membranes rupture (24yo at 36 5/7 by LMP and 29 week scan who presents with increasing contractions and rupture of membranes at noon today. Clear fluid, no bleeding. Reports normal activity. Denies n/v/f/c or dysuria. No diarrhea.) - : 4 Parity: 2 Premature: 0 Ectopic: 0 : 1 Care: positive: [facility] Complications This : positive: Other (Late to care at 29 weeks) Smoking Status: Never smoker - Mother's Labs Mother's Blood Type: positive: O Mother's RH: positive: Positive GBS: positive: Group B Step Negative Rubella Status: positive: Immune (RPR/HIV/HepB NR GC/chlam neg Glucola 127 Tdap 07/29/2019 Utox neg 06/20/19) Meds/Allgy - Home Medications Home Medications: Ambulatory Orders Medication Instructions Recorded Confirmed Pnv No.95/Ferrous Fum/Folic AC 1 tab PO DAILY 09/11/19 09/11/19 [ Caplet] - Allergies Allergies/Adverse Reactions: Allergies Allergy/AdvReac Type Severity Reaction Status Date / Time amoxicillin Allergy Hives Verified 08/16/19 12:30 buster Allergy Hives Verified 08/16/19 12:30 penicillin V Allergy Hives Verified 09/11/19 00:24 venom-honey bee Allergy Anaphylaxis Verified 08/16/19 12:30 [bee venom (honey bee)] Review of Systems - All Other Systems All Other Systems: reports: Other (As noted above) Physical - Abdominal Exam Contraction Frequency (min/apart): q4-7 Contraction Intensity: positive: Mild to moderate Uterine Resting Tone: positive: Soft - Monitoring Heart Rate Baseline: 140-150's Strip Review: positive: Category I - Presentation Presentation: positive: Vertex (Bedside scan; FH documented by US secondary to maternal tachycardia) - Vaginal Exam Membranes: positive: Membranes ruptured Dilation (in cm): visually 4cm Effacement (%): ~50% Station: positive: 0 Cervical Position: positive: Midposition Plan for Labor - Plan For Labor Plan for Labor: 24yo at 36 5/7 weeks by LMP GBS neg with PPROM. Now katie, requesting epidural. Vertex by scan Significant maternal tachycardia. Plan 1 liter bolus. Consider ECG Will call anesthesia for epidural, peds for delivery. EFW 2800gm CBC, T&S Expect Exam - Exam Vital Signs: Vital Signs (72 hours) 09/14/19 12:59 Temperature 98.4 F Heart Rate [ 148 H Monitoring electrodes] Respiratory 20 Rate Blood Pressure 126/74 [Left Brachial artery] O2 Saturation 100 General: Alert, Oriented x3, Cooperative Lungs: Clear to auscultation, Normal air movement Cardiovascular: Regular rate (Tachycardia; 2/6 systolic murmur) Abdomen: Soft, No tenderness (Gravid, S=D) Extremities: No edema Skin: No rashes Psych/Mental Status: Mental status NL
[2019-09-14] MEDS ORDERED: LACTATED RINGERS 1,000 ML IV ONE (13:13)
[2019-09-14] MEDS ORDERED: SODIUM CHLORIDE FLUSH 0.9% 10 ML SYRINGE IVP PRN ×2 (13:25→13:36)
[2019-09-14] MEDS ORDERED: ONDANSETRON 4 MG/2 ML VIAL IVP PRN ×2 (13:25→14:28)
[2019-09-14] MEDS ORDERED: fentaNYL 100 MCG/2 ML VIAL IVP PRN (13:25)
[2019-09-14] MEDS ORDERED: OXYTOCIN/SODIUM CHLORIDE 500 ML IV PRN ×2 (13:25→13:41)
[2019-09-14] MEDS: LACTATED RINGERS 1,000 ML IV SCH ×3 (13:30→15:43)
[2019-09-14 13:47] LABS: BASOPHILS % (AUTO) 0.2 %; HGB - HEMOGLOBIN 10.7 g/dL (12.0-16.0); LYMPHOCYTES # (AUTO) 0.9 10^3/uL (1.5-3.5); LYMPHOCYTES % (AUTO) 8.3 %; MEAN CORPUSCULAR HEMOGLOBIN 24.9 pg (27.0-31.0); MEAN CORPUSCULAR HGB CONC 31.1 g/dL (32.0-36.0); MEAN PLATELET VOLUME 10.6 fL (7.9-10.8); MONOCYTES # (AUTO) 0.6 10^3/uL (0.0-1.0); MONOCYTES % (AUTO) 5.1 %; NEUTROPHILS # (AUTO) 9.7 10^3/uL (1.5-6.6); NEUTROPHILS % (AUTO) 85.3 %; PLT - PLATELET COUNT 244 10^3/uL (130-450); RED CELL DISTRIBUTION WIDTH 14.5 % (12.0-15.0); WHITE BLOOD COUNT 11.4 x10^3/uL (4.8-10.8)
[2019-09-14] MEDS ORDERED: ROPIVACAINE 0.2% 200 MG/100 ML BAG EP ONE (13:48)
--- NOTE | 2019-09-14 13:55 | PROVIDER PROGRESS NOTE ---
Subjective - Prog Note Date Prog Note Date: 09/14/19 Prog Note Time: 13:54 - Subjective Subjective: Contractions mild-moderate, short in duration, somewhat irregular. Epidural in progress. Will start pitocin augmentation. Objective - Vital Signs/Intake & Output Vital Signs: Vital Signs x48h Temp Pulse Resp BP Pulse Ox 09/14/19 12:59 98.4 F 148 H 20 126/74 100 - Lab Results Fish Bones: 09/14/19 13:25 Other Labs: Lab Results x24hrs 09/14/19 Range/Units 13:25 WBC 11.4 H (4.8-10.8) x10^3/uL RBC 4.30 (4.20-5.40) 10^6/uL Hgb 10.7 L (12.0-16.0) g/dL Hct 34.4 L (37.0-47.0) % MCV 80.0 L (81.0-99.0) fL MCH 24.9 L (27.0-31.0) pg MCHC 31.1 L (32.0-36.0) g/dL RDW 14.5 (12.0-15.0) % Plt Count 244 (130-450) 10^3/uL MPV 10.6 (7.9-10.8) fL Neut # (Auto) 9.7 H (1.5-6.6) 10^3/uL Lymph # (Auto) 0.9 L (1.5-3.5) 10^3/uL [place] # (Auto) 0.6 (0.0-1.0) 10^3/uL Eos # (Auto) 0.0 (0.0-0.7) 10^3/uL Baso # (Auto) 0.0 (0.0-0.1) 10^3/uL Absolute Nucleated RBC 0.00 x10^3/uL Nucleated RBC % 0.0 /100WBC
[2019-09-14] MEDS ORDERED: NALBUPHINE 10 MG/ML AMP IVP PRN (14:28)
[2019-09-14] MEDS ORDERED: diphenhydrAMINE INJ 50 MG/ML VIAL IVP PRN (14:28)
[2019-09-14] MEDS ORDERED: ROPIVACAINE 0.2% 200 MG/100 ML BAG EP PRN (14:28)
--- NOTE | 2019-09-14 14:30 | ANESTHESIA ---
Pre-Anesthesia VS, & Labs - Diagnosis term labor, IUP - Procedure vaginal delivery Vital Signs: Temp Pulse Resp BP Pulse Ox 36.9 C 148 H 20 126/74 100 09/14/19 12:59 09/14/19 12:59 09/14/19 12:59 09/14/19 12:59 09/14/19 12:59 Height 5 ft 2 in Weight (kg) 60.328 kg Body Mass Index 24.3 - NPO Last Food Intake: lunch @1200 - Is Patient ?: Yes - Lab Results Current Lab Results: Laboratory Tests 09/14/19 13:25: WBC 11.4 H, RBC 4.30, Hgb 10.7 L, Hct 34.4 L, MCV 80.0 L, MCH 24.9 L, MCHC 31.1 L, RDW 14.5, Plt Count 244, MPV 10.6, Neut # (Auto) 9.7 H, Lymph # (Auto) 0.9 L, [place] # (Auto) 0.6, Eos # (Auto) 0.0, Baso # (Auto) 0.0, Absolute Nucleated RBC 0.00, Nucleated RBC % 0.0 Lab results reviewed: Yes Fish Bones: 09/14/19 13:25 Home Medications and Allergies Active Medications Acetaminophen (Tylenol) 650 mg PO Q6H PRN PRN Reason: PAIN Fentanyl (Fentanyl) 50 mcg IVP Q1H PRN PRN Reason: PAIN Lactated Ringer's (Lr) 1,000 mls @ 250 mls/hr IV .Q4H DOM Oxytocin/Sodium Chloride (Pitocin/Sodium Chloride) 500 mls @ 2 mls/hr IV PRN PRN; Protocol PRN Reason: labor augmentation Ondansetron HCl (Zofran Inj) 4 mg IVP Q4H PRN PRN Reason: Nausea / Vomiting Sodium Chloride (Normal Saline Flush 0.9%) 10 ml IVP PRN PRN PRN Reason: NEEDED PER PROVIDER ORDERS Sodium Chloride (Normal Saline Flush 0.9%) 10 ml IVP 0100,0900,1700 [facility] Pnv No.95/Ferrous Fum/Folic AC [ Caplet] 1 tab PO DAILY 09/11/19 Allergies/Adverse Reactions: Allergies Allergy/AdvReac Type Severity Reaction Status Date / Time amoxicillin Allergy Hives Verified 08/16/19 12:30 buster Allergy Hives Verified 08/16/19 12:30 penicillin V Allergy Hives Verified 09/11/19 00:24 venom-honey bee Allergy Anaphylaxis Verified 08/16/19 12:30 [bee venom (honey bee)] Anes History & Medical History - Anesthetic History Anesthesia Complications: reports: No previous complications Family history of Anesthesia Complications: Denies Family history of Malignant Hyperthermia: Denies - Medical History Cardiovascular: reports: None Pulmonary: reports: Asthma Gastrointestinal: reports: None Urinary: reports: None Neuro: reports: None Musculoskeletal: reports: None Endocrine/Autoimmune: reports: None Smoking Status: Never smoker - Surgical History Eyes Ears Nose Throat (EENT): Tonsil/Adenoidectomy - Obstetrical History : 4 Parity: 2 Complications: positive: Other (Late to care at 29 weeks) Exam General: Alert, Oriented x3, Cooperative Dental: WNL Mouth Opening: Greater than 4 Fingerbreadths Neck Mobility: Normal Mallampati classification: II Thyromental Distance: 4-6 cm Respiratory: No respiratory distress Cardiovascular: Regular rate Neurological: Normal speech Cognitive Status: Within normal limits Plan Anesthesia Type: Epidural Consent for Procedure(s) Verified and Reviewed: Yes Code Status: Attempt Resuscitation ASA classification: 2-Mild systemic disease Is this case an emergency?: No
--- NOTE | 2019-09-14 14:47 | PROVIDER PROGRESS NOTE ---
Subjective - Prog Note Date Prog Note Date: 09/14/19 Prog Note Time: 14:45 - Subjective Subjective: Epidural working well. VSS afeb Category 1 tracing Continues to be tachy. Maher placed for 45cc concentrated urine. Cervix 7cm/90%/0 Contractions q4-5 lasting 30s. A/P Presumed low volume status based on oliguria and tachycardia; will give another liter bolus. Contractions spaced; will start pitocin Objective - Vital Signs/Intake & Output Vital Signs: Vital Signs x48h Temp Pulse Resp BP Pulse Ox 09/14/19 12:59 98.4 F 148 H 20 126/74 100 Intake & Output: Intake & Output 09/11/19 09/12/19 09/13/19 09/14/19 23:59 23:59 23:59 23:59 Intake Total 250 Output Total 45 Balance 205 - Lab Results Fish Bones: 09/14/19 13:25 Other Labs: Lab Results x24hrs 09/14/19 09/14/19 Range/Units 13:25 13:25 WBC 11.4 H (4.8-10.8) x10^3/uL RBC 4.30 (4.20-5.40) 10^6/uL Hgb 10.7 L (12.0-16.0) g/dL Hct 34.4 L (37.0-47.0) % MCV 80.0 L (81.0-99.0) fL MCH 24.9 L (27.0-31.0) pg MCHC 31.1 L (32.0-36.0) g/dL RDW 14.5 (12.0-15.0) % Plt Count 244 (130-450) 10^3/uL MPV 10.6 (7.9-10.8) fL Neut # (Auto) 9.7 H (1.5-6.6) 10^3/uL Lymph # (Auto) 0.9 L (1.5-3.5) 10^3/uL [place] # (Auto) 0.6 (0.0-1.0) 10^3/uL Eos # (Auto) 0.0 (0.0-0.7) 10^3/uL Baso # (Auto) 0.0 (0.0-0.1) 10^3/uL Absolute Nucleated RBC 0.00 x10^3/uL Nucleated RBC % 0.0 /100WBC Blood Type O POSITIVE Antibody Screen NEGATIVE
--- NOTE | 2019-09-14 15:47 | PROVIDER PROGRESS NOTE ---
Subjective - Prog Note Date Prog Note Date: 09/14/19 Prog Note Time: 15:45 - Subjective Subjective: Feeling pressure Urine output last hour 75cc after last bolus Category 1 VE 7-8cm/90/0 Pit at 1mu/min A/P Urine output somewhat improved. Will give another bolus. No significant cervical change. Will increase pitocin. Epidural working well. Objective - Vital Signs/Intake & Output Vital Signs: Vital Signs x48h Temp Pulse Resp BP Pulse Ox 09/14/19 12:59 98.4 F 148 H 20 126/74 100 Intake & Output: Intake & Output 09/11/19 09/12/19 09/13/19 09/14/19 23:59 23:59 23:59 23:59 Intake Total 250 Output Total 45 Balance 205 - Lab Results Fish Bones: 09/14/19 13:25 Other Labs: Lab Results x24hrs 09/14/19 09/14/19 Range/Units 13:25 13:25 WBC 11.4 H (4.8-10.8) x10^3/uL RBC 4.30 (4.20-5.40) 10^6/uL Hgb 10.7 L (12.0-16.0) g/dL Hct 34.4 L (37.0-47.0) % MCV 80.0 L (81.0-99.0) fL MCH 24.9 L (27.0-31.0) pg MCHC 31.1 L (32.0-36.0) g/dL RDW 14.5 (12.0-15.0) % Plt Count 244 (130-450) 10^3/uL MPV 10.6 (7.9-10.8) fL Neut # (Auto) 9.7 H (1.5-6.6) 10^3/uL Lymph # (Auto) 0.9 L (1.5-3.5) 10^3/uL [place] # (Auto) 0.6 (0.0-1.0) 10^3/uL Eos # (Auto) 0.0 (0.0-0.7) 10^3/uL Baso # (Auto) 0.0 (0.0-0.1) 10^3/uL Absolute Nucleated RBC 0.00 x10^3/uL Nucleated RBC % 0.0 /100WBC Blood Type O POSITIVE Antibody Screen NEGATIVE
--- NOTE | 2019-09-14 15:49 | DISCHARGE SUMMARY ---
"Discharge Summary Admit Date: 09/14/19 Code Status: Attempt Resuscitation Condition at Discharge: Good - DIAGNOSES Admission Diagnoses: PPROM at 36 5/7 weeks - HPI History of Present Illness: 24yo GBS neg O+ at 36 5/7 by LMP and 29 week scan who presented with increasing contractions and rupture of membranes at noon the day of admission. Clear fluid, no bleeding. Reported normal activity. Denied n/v/f/c or dysuria. No diarrhea. Her history was notable for late onset care (29 weeks) and h/o 2 prior vaginal deliveries. Normal labs - CONSULTS | PROCEDURES Procedures: - HOSPITAL COURSE Hospital Course: Her contractions were noted to be mild, short in duration and irregular. An epidural was placed and pitocin was started. She progressed to full dilation and was delivered of a 3103gm female infant apgars 9/9 on 09/13. There were no lacerations and EBL was 100cc. Her course was uncomplicated. She was undecided about contraception and her options were discussed with her. She was DC'd home on PPD 1 with f/u recommended in 3 weeks. - ALLERGIES Allergies/Adverse Reactions: Allergies Allergy/AdvReac Type Severity Reaction Status Date / Time amoxicillin Allergy Hives Verified 08/16/19 12:30 buster Allergy Hives Verified 08/16/19 12:30 penicillin V Allergy Hives Verified 09/11/19 00:24 venom-honey bee Allergy Anaphylaxis Verified 08/16/19 12:30 [bee venom (honey bee)] - MEDICATIONS Home Medications: Ambulatory Orders Medication Instructions Recorded Confirmed Pnv No.95/Ferrous Fum/Folic AC 1 tab PO DAILY 09/11/19 09/11/19 [ Caplet] - LABS Result Diagrams: 09/14/19 13:25"
[2019-09-14] MEDS ORDERED: LIDOCAINE-MPF 1% 30 ML VIAL ONE (16:11)
[2019-09-14] MEDS ORDERED: SODIUM CHLORIDE FLUSH 0.9% 10 ML SYRINGE IVP SCH (17:00)
[2019-09-14] MEDS ORDERED: HYDROcod/ACETAM 5/325 MG TABLET PO PRN (17:04)
[2019-09-14] MEDS ORDERED: MAGNESIUM HYDROXIDE 2,400 MG/30 ML UDC PO PRN (17:04)
[2019-09-14] MEDS ORDERED: HYDROCORTISONE 1% CREAM 28 GM TUBE PR PRN (17:04)
[2019-09-14] MEDS ORDERED: WITCH HAZEL/GLYCERIN 1 PAD TOP PRN (17:04)
--- NOTE | 2019-09-14 17:04 | DELIVERY NOTE ---
Delivery Note - Labor Labor: positive: Augmented by oxytocin - Delivery Method Delivery Method: positive: Spontaneous vaginal delivery - Presentation Presentation: positive: Vertex, ROT - right occiput transverse - Nuchal Cord Nuchal Cord: positive: None (Markedly long 3 vessel cord, true knot, normally inserted) - Anesthetic Anesthetic Type: - Amniotic Fluid Description Amniotic Fluid Description: positive: Clear - Episiotomy Type Episiotomy Type: positive: None - Laceration Laceration: positive: None - Delivery Outcome Delivery Outcome: positive: Livebirth - : positive: Placed in direct skin contact with mother, Bulb syringe, [place] used [place] sex: positive: Female - Cord Cord: positive: 3 vessels - Placenta Placenta: positive: Intact, Spontaneous - Estimated Blood Loss Estimated Blood Loss (in cc): 100 - Post Delivery Events Post Delivery Events: positive: No post delivery events - Delivery Comments (Free Text/Narrative) Delivery Comments (Free Text/Narrative): of 3103gm female apgars 9/9 delivered from ROT at 16:49. Spontaneous, vigorous cry. Placenta delivered intact with traction. Long, normally inserted 3VC with true knot. No lacerations EBL 100cc
[2019-09-14] MEDS: ACETAMINOPHEN 325 MG TABLET PO PRN (17:27)
[2019-09-14] MEDS: IBUPROFEN 600 MG TABLET PO PRN (17:27)
[2019-09-14] MEDS ORDERED: LACTATED RINGERS 1,000 ML IV SCH (18:00)
[2019-09-15] MEDS: IBUPROFEN 600 MG TABLET PO PRN ×4 (00:34→18:41)
[2019-09-15] MEDS: ACETAMINOPHEN 325 MG TABLET PO PRN ×4 (00:35→16:01)
[2019-09-15] MEDS: DOCUSATE SODIUM 100 MG CAPSULE PO SCH ×2 (10:06→12:31)
--- NOTE | 2019-09-15 12:03 | PROVIDER PROGRESS NOTE ---
Subjective - Prog Note Date Prog Note Date: 09/15/19 Prog Note Time: 11:46 - Subjective Subjective: PPD 1 Comfortable. Regular diet, normal lochia. going well. VSS afeb Abd soft, non-tender, fundus firm, at umbilicus. no extremity or labial edema A/P Stable. Continue routine care. Anticipate DC tomorrow or based on peds recommendation Objective - Vital Signs/Intake & Output Vital Signs: Vital Signs x48h Temp Pulse Resp BP Pulse Ox 09/15/19 08:11 97.9 F 92 16 106/68 99 Intake & Output: Intake & Output 09/12/19 09/13/19 09/14/19 09/15/19 23:59 23:59 23:59 23:59 Intake Total 833.334 300 Output Total 1245 Balance -411.666 300 - Lab Results Fish Bones: 09/14/19 13:25 Other Labs: Lab Results x24hrs 09/14/19 09/14/19 Range/Units 13:25 13:25 WBC 11.4 H (4.8-10.8) x10^3/uL RBC 4.30 (4.20-5.40) 10^6/uL Hgb 10.7 L (12.0-16.0) g/dL Hct 34.4 L (37.0-47.0) % MCV 80.0 L (81.0-99.0) fL MCH 24.9 L (27.0-31.0) pg MCHC 31.1 L (32.0-36.0) g/dL RDW 14.5 (12.0-15.0) % Plt Count 244 (130-450) 10^3/uL MPV 10.6 (7.9-10.8) fL Neut # (Auto) 9.7 H (1.5-6.6) 10^3/uL Lymph # (Auto) 0.9 L (1.5-3.5) 10^3/uL [place] # (Auto) 0.6 (0.0-1.0) 10^3/uL Eos # (Auto) 0.0 (0.0-0.7) 10^3/uL Baso # (Auto) 0.0 (0.0-0.1) 10^3/uL Absolute Nucleated RBC 0.00 x10^3/uL Nucleated RBC % 0.0 /100WBC Blood Type O POSITIVE Antibody Screen NEGATIVE
[2019-09-15 15:56] VITALS: BP 109/70
--- NOTE | 2019-09-15 18:13 | Discharge Plan ---
Discharge Plan Problem Reviewed?: Yes Disposition: Home, Self Care Prescriptions: Acetaminophen [Tylenol] 650 mg PO Q6H PRN #50 tablet PRN Reason: Pain Ibuprofen [Motrin] 600 mg PO Q6H PRN #30 tablet PRN Reason: Pain Diet: Regular Activity Restrictions: Pelvic rest Shower Restrictions: No Driving Restrictions: No No Smoking: If you smoke, Please STOP! Call for help. Follow-up with: Steven Garrido MD [Provider Admit Priv/Credential] -
--- NOTE | 2019-09-15 20:09 | Labor Flowsheet ---
Labor Flowsheet Datetime Report Generated by CPN: 09/15/2019 20:09 Datetime: 09/15/2019 15:46 VITAL SIGNS NBP Sys/[place]/Mean (mmHg): 109 : 70 : 77 Pulse: 145 Datetime: 09/15/2019 03:04 SpO2 (%): 99 Datetime: 09/14/2019 19:00 Stage of : Recovery PAIN Pain Scale: 0 Pain Presence: None/Denies Datetime: 09/14/2019 18:00 Pain Assessment Comments: Improvement moving legs bilaterally, but patient states legs still feel v lisha heavy Datetime: 09/14/2019 16:49 UTERINE ACTIVITY Monitor Mode: External Frequency (min): 1.5-2.5 Quality: Strong Resting Tone (Palpate): Relaxed Contraction Comments: Pushing contractions ASSESSMENT A Monitor Mode: Telemetry FHR Baseline Rate : 135 Variability: Moderate 6-25 bpm Accelerations: None Decelerations: Variable Category: Category II Datetime: 09/14/2019 16:45 Oxygen Method: Room Air LaborFlag: Labor Datetime: 09/14/2019 16:31 STAGE 2 Pushing: Coached on Pushing Pushing Position: Pushing with Contractions; Pushing Lithotomy Pushing Progress: Descent with Pushing; Perineal Bulging Datetime: 09/14/2019 16:30 Duration (sec): 60-120 Pattern: Normal: <= 5 Contractions in 10 Minutes Datetime: 09/14/2019 16:25 VAGINAL EXAM Dilatation (cm): 10.0 Exam by: Erber Datetime: 09/14/2019 16:07 Patient Position/Activity: High Fowlers Patient Care Comments: Froggy legged Thrones position Datetime: 09/14/2019 16:00 Respirations: 17 Temperature (C): 36.8 Anesthesia Level Check: T10- Umbilicus Datetime: 09/14/2019 15:43 PATIENT CARE IV/Blood Work: IV Bolus Started; IV Bolus Given ml @ 1000; New IV Bag Hung; IV Bag Number @ 3 Datetime: 09/14/2019 15:15 Monitor Interventions for FHR: Ultrasound Adjusted Datetime: 09/14/2019 15:05 Monitor Interventions for UA: Emmett Adjusted Datetime: 09/14/2019 15:00 Vital Sign Comments: BP cuff on higher arm Datetime: 09/14/2019 14:55 MEDICATIONS Pitocin (milliunits): Started @ 1 Datetime: 09/14/2019 14:38 Pain Relief Measures: Epidural Given Pain Coping: Talking Through Contractions Effacement (%): 90 Station: 0 Comfort Measures: Breathing/Relaxation Datetime: 09/14/2019 14:35 I/O Interventions: Maher Cath Inserted Datetime: 09/14/2019 14:34 COMMUNICATION Communication Comments: C Hicks, [employer], checked in on how patient is doing; Dr. Erber at bedside t o place Maher catheter Datetime: 09/14/2019 14:15 Epidural Procedure Other: Pump Started Datetime: 09/14/2019 14:07 ANESTHESIA Epidural Procedure: Loading Dose Datetime: 09/14/2019 13:59 Anesthesia Comments: local
== END 2019-09-15 18:50 | disposition home or self-care (01) | DRG 807 ==
LOC: WFO 12:42 → FBP 12:44 → WFO 13:24 → FBP 13:25
PROVIDERS: ADMIT Obstetrics & Gynecology; ATTEND Obstetrics & Gynecology
PROC: 10E0XZZ Delivery of Products of Conception, External Approach (ICD-10-PCS; principal; 2019-09-14)
DX: O42.013 Preterm premature rupture of membranes, onset of labor within 24 hours of rupture, third trimester (principal); Z37.0 Single live birth; O69.2XX0 Labor and delivery complicated by other cord entanglement, with compression, not applicable or unspecified; O32.2XX0 Maternal care for transverse and oblique lie, not applicable or unspecified; Z3A.36 36 weeks gestation of pregnancy
CPT/HCPCS: 85025; 86850; 86900; 86901; A9270; J7120; 99212